=== PATIENT | female | born 1990 | race American Indian/Alaskan Native ===

== ENCOUNTER 2021-10-15 09:12 | Emergency (ER) | payer SELFPAY ==
[2021-10-15 09:36] VITALS: BP 118/69
[2021-10-15 13:41] LABS: Basophils % (Auto) 0.3 % (0.0-1.8); Eosinophils % (Auto) 0.2 % (0.0-4.3); Hematocrit 36.7 % (30.3-42.9); Lymphocytes # (Auto) 1.4 K/mm3 (1.2-5.4); Mean Corpuscular HGB Conc 33 % (30-34); Mean Corpuscular Volume 92 fl (79-97); Monocytes # (Auto) 0.5 K/mm3 (0.0-0.8); Monocytes % (Auto) 8.2 % (0.0-7.3); Platelet Count 220 K/mm3 (140-440); Red Cell Distribution Width 13.9 % (13.2-15.2)
[2021-10-15 14:06] LABS: Alanine Aminotransferase 10 units/L (7-56); Albumin 4.7 g/dL (3.9-5); Blood Urea Nitrogen 6 mg/dL (7-17); Hemolysis Index 4
[2021-10-15 14:11] LABS: BUN/Creatinine Ratio 10
[2021-10-15] MEDS ORDERED: KETOROLAC 10 MG TAB PO ONE (18:25)
[2021-10-15] MEDS ORDERED: ONDANSETRON 4 MG ODT TAB PO ONE (18:25)
--- NOTE | 2021-10-15 18:51 | Emergency Department Report ---
ED Abdominal Pain HPI - General Chief Complaint: Abdominal Pain Stated Complaint: CHEST PAIN/BACK PAIN Time Seen by Provider: 10/15/21 15:45 Source: patient Mode of arrival: Ambulatory Limitations: No Limitations - History of Present Illness Initial Comments: 31-year-old black female with no past medical history presents to the emergency department for evaluation of 1 day history of abdominal pain. She states that she woke up this morning with severe abdominal pain that she rated 10 on a 10 point scale along with nausea. She states that pain was so intense that she felt like she could not breathe or walk. She denies fever, vomiting, dysuria, and vaginal discharge. MD Complaint: abdominal pain -: Sudden, This morning Location: LLQ, RLQ Radiation: none Migration to: no migration Severity scale (0 -10): 10 Quality: aching Consistency: constant Worsens With: movement, other (Urination) Associated Symptoms: nausea. denies: vomiting, diarrhea, fever, chills, dysuria, hematemesis, hematochezia, melena, hematuria, anorexia, syncope - Related Data LMP (females 10-50): 3 weeks Previous Rx's Medication Instructions Recorded Last Taken Type Ketorolac [Toradol] 10 mg PO Q6H PRN #12 tab 10/15/21 Unknown Rx Allergies Allergy/AdvReac Type Severity Reaction Status Date / Time No Known Allergies Allergy Unverified 10/15/21 09:36 ED Review of Systems ROS: Stated complaint: CHEST PAIN/BACK PAIN Other details as noted in HPI Comment: All other systems reviewed and negative Constitutional: denies: chills, fever, malaise Respiratory: denies: shortness of breath Cardiovascular: denies: chest pain, palpitations Gastrointestinal: abdominal pain, nausea. denies: vomiting, diarrhea, hematemesis, melena, hematochezia Genitourinary: denies: urgency, dysuria, frequency, hematuria, discharge, abno rmal menses Musculoskeletal: denies: back pain Skin: denies: rash, lesions Neurological: weakness. denies: headache ED Past Medical Hx - Past Medical History Previous Medical History?: No - Medications Home Medications: Home Medications Medication Instructions Recorded Confirmed Last Taken Type Ketorolac [Toradol] 10 mg PO Q6H PRN #12 tab 10/15/21 Unknown Rx ED Physical Exam - General Limitations: No Limitations General appearance: alert, in no apparent distress - Head Head exam: Present: atraumatic, normocephalic - Eye Eye exam: Present: normal appearance. Absent: conjunctival injection - ENT ENT exam: Present: normal exam - Neck Neck exam: Present: normal inspection, full ROM. Absent: tenderness, lymphadenopathy - Respiratory Respiratory exam: Present: normal lung sounds bilaterally. Absent: respiratory distress, wheezes, rales, rhonchi, stridor, chest wall tenderness - Cardiovascular Cardiovascular Exam: Present: regular rate, normal heart sounds - GI/Abdominal GI/Abdominal exam: Present: soft, tenderness (Bilateral lower quadrant), normal bowel sounds. Absent: distended, guarding, rebound, rigid - Extremities Exam Extremities exam: Present: normal inspection, full ROM, normal capillary refill. Absent: tenderness, pedal edema, joint swelling, calf tenderness - Back Exam Back exam: Present: normal inspection. Absent: CVA tenderness (R), CVA tenderness (L) - Neurological Exam Neurological exam: Present: alert, oriented X3 - Psychiatric Psychiatric exam: Present: normal affect, normal mood - Skin Skin exam: Present: warm, dry, intact, normal color ED Course Vital Signs 10/15/21 09:34 Temperature 98.4 F Pulse Rate 69 Respiratory 18 Rate Blood Pressure 118/69 [Left] O2 Sat by Pulse 99 Oximetry ED Medical Decision Making - Lab Data Result diagrams: 10/15/21 12:44 10/15/21 12:44 - Medical Decision Making 31-year-old black female with no past medical history presents to the emergency department for evaluation of 1 day history of abdominal pain. She states that she woke up this morning with severe abdominal pain that she rated 10 on a 10 po int scale along with nausea. She states that pain was so intense that she felt like she could not breathe or walk. She denies fever, vomiting, dysuria, and vaginal discharge. CBC, CMP, lipase, and serum hCG within normal limits. Patient was given Toradol and GI cocktail while in the emergency department. While awaiting results of urine, patient decided that she wanted to be discharged home because she had already been there for several hours and stated that she was hungry and wanted to go home and eat. Advised patient that she will be notified if she needed an antibiotic for urinary tract infection. Patient was discharged home with a prescription for Toradol and advised to follow-up with her primary care provider if no improvement or worsening symptoms or return to the emergency department as needed. Urine when it resulted was without signs of infection but did have small amount of blood. Critical care attestation.: If time is entered above; I have spent that time in minutes in the direct care of this critically ill patient, excluding procedure time. ED Disposition Clinical Impression: Abdominal pain Qualifiers: Abdominal location: lower abdomen, unspecified Qualified Code(s): R10.30 - Lower abdominal pain, unspecified Disposition: HOME / SELF CARE / HOMELESS Is pt being admited?: No Does the pt Need Aspirin: No Condition: Stable Instructions: Abdominal Pain, Adult, [id number], Abdominal Pain (ED) Additional Instructions: Take medication as prescribed. Your urine results have not posted, but if they come back positive for urinary tract infection, I will give you a call then call in some antibiotics. Follow-up with your primary care provider if no improvement. Return to the emergency department as needed. Prescriptions: Ketorolac [Toradol] 10 mg PO Q6H PRN #12 tab PRN Reason: Pain Referrals: JULEE LAZCANO MD [Staff Physician] - 3-5 Days Forms: Work/School Release Form(ED) Time of Disposition: 18:49
[2021-10-15 19:46] LABS: Mucus,Urine FEW /HPF; WBC,Urine < 1.0 /HPF (0.0-6.0)
[2021-10-15 20:19] LABS: Color,Urine Colorless (Yellow)
[2021-10-15 20:20] LABS: Bilirubin,Urine Negative (Negative); Urobilinogen,Urine 0.2 mg/dL (<2.0)
[2021-10-15 20:21] LABS: Blood,Urine Small (Negative)
--- NOTE | 2021-10-18 10:06 | Electrocardiograph Report ---
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
== END 2021-10-15 18:54 | disposition home or self-care (01) ==
LOC: ED 09:12
DX: R10.31 Right lower quadrant pain (principal); R10.32 Left lower quadrant pain
CPT/HCPCS: 36415; 80053; 81001; 83690; 84702; 85025; 93005; 99283; J3490; Q0162